=== PATIENT | female | born 2000 | race Asian ===

== ENCOUNTER 2019-01-17 21:47 | Emergency (ER) | payer OTHER ==
--- NOTE | 2019-01-17 22:15 | ED ---
Medical Screening - HPI Summary HPI Summary: Patient complains of increasing thoughts of SI over the past month. States history of same over the past year. Patient is new student at [employer]. Has planned to jump off the bridge. Prior attempted OD at 12 years old. History of meniscectomy as part of gender change process. Denies EtOH today or recreational drug use. Admits to cutting left arm with passive scissors. Has any symptoms of illness, pain or other injury. Denies medical history. - History of Current Complaint Chief Complaint: EDSuicidal Stated Complaint: PSYCH EVALUATION PER PT Time Seen by Provider: 01/17/19 22:09 Onset/Duration: Started Weeks Ago Severity: moderate PMH/Surg Hx/FS Hx/Imm Hx Endocrine/Hematology History: Denies: Hx Diabetes Cardiovascular History: Denies: Hx Hypercholesterolemia, Hx Hypertension History: Denies: Hx Dialysis Sensory History: Denies: Hx Eye Prosthesis Opthamlomology History: Denies: Hx Legally Blind EENT History: Denies: Hx Deafness Neurological History: Denies: Hx Dementia Infectious Disease History: No Infectious Disease History: Denies: Traveled Outside the US in Last 30 Days - Family History Known Family History: Negative: Hypertension, Diabetes - Social History Alcohol Use: None Substance Use Type: Reports: Marijuana Smoking Status (MU): Never Smoked Tobacco Review of Systems Constitutional: Negative Eyes: Negative ENT: Negative Cardiovascular: Negative Respiratory: Negative Gastrointestinal: Negative Genitourinary: Negative Musculoskeletal: Negative Skin: Other Neurological: Negative Positive: Depressed All Other Systems Reviewed And Are Negative: Yes Physical Exam - Summary Physical Exam Summary: Several small lacerations to left forearm that are healing well. No indication for suturing or treatment. Alert and oriented, cooperative with exam. Triage Information Reviewed: Yes Vital Signs On Initial Exam: Initial Vitals Temp Pulse Resp BP Pulse Ox 98.4 F 85 18 158/122 98 01/17/19 21:51 01/17/19 21:51 01/17/19 21:51 01/17/19 21:51 01/17/19 21:51 Vital Signs Reviewed: Yes Appearance: Positive: Well-Appearing Skin: Positive: Warm Eyes: Positive: Normal ENT: Positive: Normal ENT inspection Neck: Positive: Supple Respiratory/Lung Sounds: Positive: Clear to Auscultation Cardiovascular: Positive: Normal Abdomen Description: Positive: Nontender Musculoskeletal: Positive: Normal Neurological: Positive: Normal Psychiatric: Positive: Normal AVPU Assessment: Alert - [place] Coma Scale Best Eye Response: 4 - Spontaneous Best Motor Response: 6 - Obeys Commands Best Verbal Response: 5 - Oriented Coma Scale Total: 15 Diagnostics - Vital Signs Vital Signs Temp Pulse Resp BP Pulse Ox 01/17/19 21:51 98.4 F 85 18 158/122 98 - Laboratory Result Diagrams: 01/17/19 22:21 01/17/19 22:21 Lab Statement: Any lab studies that have been ordered have been reviewed, and results considered in the medical decision making process. Course/Dx - Course Course Of Treatment: Patient complains of increasing thoughts of SI over the past month. States history of same over the past year. Patient is new student at [employer]. Has planned to jump off the bridge. Prior attempted OD at 12 years old. History of meniscectomy as part of gender change process. Denies EtOH today or recreational drug use. Admits to cutting left arm with passive scissors. Has any symptoms of illness, pain or other injury. Denies medical history. Vital signs within normal limits. Labs unremarkable. Mental health recommends discharge for outpatient treatment. - Diagnoses Provider Diagnoses: Depression Discharge ED - Sign-Out/Discharge Documenting (check all that apply): Patient Departure Patient Received Moderate/Deep Sedation with Procedure: No - Discharge Plan Condition: Stable Disposition: HOME Referrals: No Primary Care PhysNOPCP [Primary Care Provider] - - Billing Disposition and Condition Condition: STABLE Disposition: Home
[2019-01-17 22:32] LABS: ABS Basophils 0.1 10^3/ul (0-0.2); ABS Eosinophils 0.2 10^3/ul (0-0.6); ABS Lymphocytes 2.5 10^3/ul (1.0-4.8); ABS Monocytes 0.7 10^3/ul (0-0.8); ABS Neutrophils 3.6 10^3/ul (1.5-7.7); Eosinophil % 2.7 %; Hematocrit 43 % (35-47); Hemoglobin 14.6 g/dL (12.0-16.0); Lymphocyte % 35.4 %; Mean Corpuscular HGB Conc 34 g/dL (31-36); Mean Corpuscular Hemoglobin 32 pg (27-31); Mean Corpuscular Volume 93 fL (80-97); Mean Platelet Volume 6.8 fL (7.4-10.4); Platelet Count 233 10^3/uL (150-450); Red Blood Count 4.63 10^6 /uL (3.70-4.87); Red Cell Distribution Width 13 % (10-15)
[2019-01-17 22:47] LABS: ALT 11 U/L (7-52); AST 16 U/L (13-39); Albumin 4.9 g/dL (3.2-5.2); Albumin/Globulin Ratio 1.8 (1-3); Alkaline Phosphatase 48 U/L (34-104); Anion Gap 6 mmol/L (2-11); BUN/Creatinine Ratio 14.3 (8-20); Blood Urea Nitrogen 9 mg/dL (6-24); CO2 Carbon Dioxide 29 mmol/L (22-32); Calcium 9.7 mg/dL (8.6-10.3); Chloride 104 mmol/L (101-111); EGFR African American 147.3 (>60); EGFR Non-African American 121.7 (>60); Globulin 2.8 g/dL (2-4); Glucose 99 mg/dL (70-100); Potassium 3.9 mmol/L (3.5-5.0); Sodium 139 mmol/L (135-145); Total Protein 7.7 g/dL (6.4-8.9)
[2019-01-17 23:15] LABS: Acetaminophen < 15 mcg/mL; Alcohol < 10 mg/dL (<10); Salicylate < 2.50 mg/dL (<30)
[2019-01-17 23:23] LABS: Urine Appearance Clear; Urine Bacteria Absent (Absent); Urine Bilirubin Negative (Negative); Urine Blood 2+ (Negative); Urine Color Colorless; Urine Glucose Negative (Negative); Urine Ketones Negative (Negative); Urine Nitrite Negative (Negative); Urine Protein Negative (Negative); Urine Red Blood Cell Absent (Absent); Urine Specific Gravity 1.002 (1.010-1.030); Urine Squamous Epithelial Cell Present (Absent); Urine Urobilinogen Negative (Negative); Urine White Blood Cell Absent (Absent)
[2019-01-17 23:30] LABS: TSH (Thyroid Stimulating Horm) 3.11 mcIU/mL (0.34-5.60)
[2019-01-17 23:37] LABS: Urine Benzodiazepine Screen None Detected (None Detect); Urine Opiates Screen None Detected (None Detect)
[2019-01-18 02:09] VITALS: BP 120/81
== END 2019-01-18 02:07 | disposition home or self-care (01) ==
LOC: ED 21:47
DX: F32.9 Major depressive disorder, single episode, unspecified (principal); F64.9 Gender identity disorder, unspecified; Z91.5 Personal history of self-harm
CPT/HCPCS: 36415; 80053; 80307; 80320; 80329; 81003; 81015; 84443; 85025; 99285; G0480

== ENCOUNTER 2019-01-23 21:42 | Inpatient (IN) | payer OTHER ==
[2019-01-23 22:31] LABS: Urine Appearance Clear; Urine Bilirubin Negative (Negative); Urine Blood Negative (Negative); Urine Color Colorless; Urine Glucose Negative (Negative); Urine Ketones Negative (Negative); Urine Nitrite Negative (Negative); Urine Protein Negative (Negative); Urine Specific Gravity 1.002 (1.010-1.030); Urine Urobilinogen Negative (Negative)
[2019-01-23 22:34] LABS: ABS Basophils 0.1 10^3/ul (0-0.2); ABS Eosinophils 0.2 10^3/ul (0-0.6); ABS Lymphocytes 2.5 10^3/ul (1.0-4.8); ABS Monocytes 0.7 10^3/ul (0-0.8); ABS Neutrophils 3.9 10^3/ul (1.5-7.7); Eosinophil % 2.4 %; Hematocrit 43 % (35-47); Hemoglobin 14.9 g/dL (12.0-16.0); Lymphocyte % 33.7 %; Mean Corpuscular HGB Conc 35 g/dL (31-36); Mean Corpuscular Hemoglobin 32 pg (27-31); Mean Corpuscular Volume 92 fL (80-97); Mean Platelet Volume 6.5 fL (7.4-10.4); Nucleated Red Blood Cells % 0.1; Platelet Count 253 10^3/uL (150-450); Red Blood Count 4.71 10^6 /uL (3.70-4.87); Red Cell Distribution Width 13 % (10-15); White Blood Count 7.4 10^3/uL (3.5-10.8)
[2019-01-23] MEDS ORDERED: Charcoal ACTIVATED* 25 GM/120 ML BTL PO ONE (22:50)
[2019-01-23 22:57] LABS: Urine Benzodiazepine Screen None Detected (None Detect); Urine Opiates Screen None Detected (None Detect)
[2019-01-23 22:57] LABS: ALT 10 U/L (7-52); AST 15 U/L (13-39); Albumin 4.8 g/dL (3.2-5.2); Albumin/Globulin Ratio 1.9 (1-3); Alkaline Phosphatase 50 U/L (34-104); Anion Gap 9 mmol/L (2-11); BUN/Creatinine Ratio 12.7 (8-20); Blood Urea Nitrogen 9 mg/dL (6-24); CO2 Carbon Dioxide 24 mmol/L (22-32); Calcium 9.6 mg/dL (8.6-10.3); Chloride 106 mmol/L (101-111); EGFR African American 128.3 (>60); Globulin 2.5 g/dL (2-4); Glucose 92 mg/dL (70-100); Potassium 3.5 mmol/L (3.5-5.0); Sodium 139 mmol/L (135-145); Total Protein 7.3 g/dL (6.4-8.9)
[2019-01-23 23:05] LABS: Acetaminophen < 15 mcg/mL; Alcohol 11 mg/dL (<10); Salicylate < 2.50 mg/dL (<30)
--- NOTE | 2019-01-24 02:43 | ED ---
Medical Screening - HPI Summary HPI Summary: Patient complains of following 470 mg of Prozac with intent to self-harm. Denies intent to kill herself. Patient states she had an old prescription for Prozac in 10 mg tabs. Patient states she took 20 tabs at 8 PM tonight. Took another 27 tabs at 9 PM tonight. Also states she took a shot of gin. Denies any other drug use. Patient states she was recently started on Lexapro which she has increased her depression. Other than depression, denies any other symptoms, pain or injury. History of gender transformation and depression. - History of Current Complaint Chief Complaint: EDSuicidal Stated Complaint: OVERDOSE PER PT Time Seen by Provider: 01/23/19 22:11 Onset/Duration: Started Hours Ago Severity: mild PMH/Surg Hx/FS Hx/Imm Hx Endocrine/Hematology History: Denies: Hx Diabetes Cardiovascular History: Denies: Hx Hypercholesterolemia, Hx Hypertension History: Denies: Hx Dialysis Sensory History: Denies: Hx Eye Prosthesis, Hx Legally Blind, Hx Deafness Opthamlomology History: Denies: Hx Eye Prosthesis, Hx Legally Blind Neurological History: Denies: Hx Dementia Psychiatric History: Reports: Hx Eating Disorder - Bulemia and Eating Dis NOS. Denies: Hx of Violent Episodes Against Others - Immunization History Immunizations Up to Date: Yes Infectious Disease History: No Infectious Disease History: Denies: Traveled Outside the US in Last 30 Days - Family History Known Family History: Negative: Hypertension, Diabetes - Social History Alcohol Use: Occasionally Substance Use Type: Reports: Marijuana Smoking Status (MU): Never Smoked Tobacco Review of Systems Constitutional: Negative Eyes: Negative ENT: Negative Cardiovascular: Negative Respiratory: Negative Gastrointestinal: Negative Genitourinary: Negative Musculoskeletal: Negative Skin: Negative Neurological: Negative Positive: Depressed All Other Systems Reviewed And Are Negative: Yes Physical Exam Triage Information Reviewed: Yes Vital Signs On Initial Exam: Initial Vitals Temp Pulse Resp BP Pulse Ox 99.5 F 100 15 144/87 99 01/23/19 21:53 01/23/19 21:53 01/23/19 21:53 01/23/19 21:53 01/23/19 21:53 Vital Signs Reviewed: Yes Appearance: Positive: Well-Appearing Skin: Positive: Warm Head/Face: Positive: Normal Head/Face Inspection Eyes: Positive: Normal ENT: Positive: Normal ENT inspection Neck: Positive: Supple Respiratory/Lung Sounds: Positive: Clear to Auscultation Cardiovascular: Positive: Normal Abdomen Description: Positive: Nontender Musculoskeletal: Positive: Normal Neurological: Positive: Normal Psychiatric: Positive: Normal AVPU Assessment: Alert - [place] Coma Scale Best Eye Response: 4 - Spontaneous Best Motor Response: 6 - Obeys Commands Best Verbal Response: 5 - Oriented Coma Scale Total: 15 Diagnostics - Vital Signs Vital Signs Temp Pulse Resp BP Pulse Ox 01/23/19 21:53 99.5 F 100 15 144/87 99 - Laboratory Lab Results: Lab Results 01/23/19 01/23/19 01/23/19 Range/Units 22:07 22:07 22:29 WBC 7.4 (3.5-10.8) 10^3/uL RBC 4.71 (3.70-4.87) 10^6 /uL Hgb 14.9 (12.0-16.0) g/dL Hct 43 (35-47) % MCV 92 (80-97) fL MCH 32 H (27-31) pg MCHC 35 (31-36) g/dL RDW 13 (10-15) % Plt Count 253 (150-450) 10^3/uL MPV 6.5 L (7.4-10.4) fL Neut % (Auto) 53.5 % Lymph % (Auto) 33.7 % [place] % (Auto) 9.5 % Eos % (Auto) 2.4 % Baso % (Auto) 0.9 % Absolute Neuts (auto) 3.9 (1.5-7.7) 10^3/ul Absolute Lymphs (auto) 2.5 (1.0-4.8) 10^3/ul Absolute Monos (auto) 0.7 (0-0.8) 10^3/ul Absolute Eos (auto) 0.2 (0-0.6) 10^3/ul Absolute Basos (auto) 0.1 (0-0.2) 10^3/ul Absolute Nucleated RBC 0.0 10^3/ul Nucleated RBC % 0.1 Sodium (135-145) mmol/L Potassium (3.5-5.0) mmol/L Chloride (101-111) mmol/L Carbon Dioxide (22-32) mmol/L Anion Gap (2-11) mmol/L BUN (6-24) mg/dL Creatinine (0.51-0.95) mg/dL Est GFR ( Amer) (>60) Est GFR (Non-Af Amer) (>60) BUN/Creatinine Ratio (8-20) Glucose (70-100) mg/dL Calcium (8.6-10.3) mg/dL Total Bilirubin (0.2-1.0) mg/dL AST (13-39) U/L ALT (7-52) U/L Alkaline Phosphatase (34-104) U/L Total Protein (6.4-8.9) g/dL Albumin (3.2-5.2) g/dL Globulin (2-4) g/dL Albumin/Globulin Ratio (1-3) TSH (0.34-5.60) mcIU/mL Urine Color Colorless Urine Appearance Clear Urine pH 7.0 (5-9) Ur Specific [place] 1.002 L (1.010-1.030) Urine Protein Negative (Negative) Urine Ketones Negative (Negative) Urine Blood Negative (Negative) Urine Nitrate Negative (Negative) Urine Bilirubin Negative (Negative) Urine Urobilinogen Negative (Negative) Ur Leukocyte Esterase Negative (Negative) Urine Glucose Negative (Negative) Salicylates (<30) mg/dL Urine Opiates Screen None detected (None Detect) Acetaminophen mcg/mL Ur Barbiturates Screen None detected (None Detect) Ur Phencyclidine Scrn None detected (None Detect) Ur Amphetamines Screen None detected (None Detect) U Benzodiazepines Scrn None detected (None Detect) Urine Cocaine Screen None detected (None Detect) U Cannabinoids Screen None detected (None Detect) Serum Alcohol (<10) mg/dL 01/23/19 Range/Units 22:29 WBC (3.5-10.8) 10^3/uL RBC (3.70-4.87) 10^6 /uL Hgb (12.0-16.0) g/dL Hct (35-47) % MCV (80-97) fL MCH (27-31) pg MCHC (31-36) g/dL RDW (10-15) % Plt Count (150-450) 10^3/uL MPV (7.4-10.4) fL Neut % (Auto) % Lymph % (Auto) % [place] % (Auto) % Eos % (Auto) % Baso % (Auto) % Absolute Neuts (auto) (1.5-7.7) 10^3/ul Absolute Lymphs (auto) (1.0-4.8) 10^3/ul Absolute Monos (auto) (0-0.8) 10^3/ul Absolute Eos (auto) (0-0.6) 10^3/ul Absolute Basos (auto) (0-0.2) 10^3/ul Absolute Nucleated RBC 10^3/ul Nucleated RBC % Sodium 139 (135-145) mmol/L Potassium 3.5 (3.5-5.0) mmol/L Chloride 106 (101-111) mmol/L Carbon Dioxide 24 (22-32) mmol/L Anion Gap 9 (2-11) mmol/L BUN 9 (6-24) mg/dL Creatinine 0.71 (0.51-0.95) mg/dL Est GFR ( Amer) 128.3 (>60) Est GFR (Non-Af Amer) 106.0 (>60) BUN/Creatinine Ratio 12.7 (8-20) Glucose 92 (70-100) mg/dL Calcium 9.6 (8.6-10.3) mg/dL Total Bilirubin 0.40 (0.2-1.0) mg/dL AST 15 (13-39) U/L ALT 10 (7-52) U/L Alkaline Phosphatase 50 (34-104) U/L Total Protein 7.3 (6.4-8.9) g/dL Albumin 4.8 (3.2-5.2) g/dL Globulin 2.5 (2-4) g/dL Albumin/Globulin Ratio 1.9 (1-3) TSH 2.10 (0.34-5.60) mcIU/mL Urine Color Urine Appearance Urine pH (5-9) Ur Specific [place] (1.010-1.030) Urine Protein (Negative) Urine Ketones (Negative) Urine Blood (Negative) Urine Nitrate (Negative) Urine Bilirubin (Negative) Urine Urobilinogen (Negative) Ur Leukocyte Esterase (Negative) Urine Glucose (Negative) Salicylates < 2.50 (<30) mg/dL Urine Opiates Screen (None Detect) Acetaminophen < 15 mcg/mL Ur Barbiturates Screen (None Detect) Ur Phencyclidine Scrn (None Detect) Ur Amphetamines Screen (None Detect) U Benzodiazepines Scrn (None Detect) Urine Cocaine Screen (None Detect) U Cannabinoids Screen (None Detect) Serum Alcohol 11 H (<10) mg/dL Result Diagrams: 01/23/19 22:29 01/23/19 22:29 Lab Statement: Any lab studies that have been ordered have been reviewed, and results considered in the medical decision making process. Course/Dx - Course Course Of Treatment: Patient complains of following 470 mg of Prozac with intent to self-harm. Denies intent to kill herself. Patient states she had an old prescription for Prozac in 10 mg tabs. Patient states she took 20 tabs at 8 PM tonight. Took another 27 tabs at 9 PM tonight. Also states she took a shot of gin. Denies any other drug use. Patient states she was recently started on Lexapro which she has increased her depression. Other than depression, denies any other symptoms, pain or injury. History of gender transformation and depression. Vital signs within normal limits. Labs unremarkable. Poison control contacted, recommended activated charcoal and 6 hours of observation. Charcoal administered. Patient observed. Patient remains asymptomatic. Mental health evaluation pending. - Diagnoses Provider Diagnoses: Mood disorder Discharge ED - Sign-Out/Discharge Documenting (check all that apply): Sign-Out Patient Signing out patient TO: Toi Tripp - Discharge Plan Condition: Stable Disposition: ADMITTED TO [facility] - Billing Disposition and Condition Condition: STABLE Disposition: Admitted to [facility]
--- NOTE | 2019-01-24 05:57 | ED ---
Progress - Progress Note Progress Note: Patient is received as a sign out from AUSTEN Branch 01/24/19 pending disposition of this mental health patient. 0436 Patients case was reviewed by Dr. Wu, patient was offered voluntary admission with diagnosis of mood disorder. However, there are no beds available for this patient. Patient is signed out to Dr. Riggs at 0700 shift change pending possible transfer of this patient. - Consult/PCP Time Called: 02:46 Course/Dx - Course Course Of Treatment: Patient is received as a sign out from AUST[facility] pending disposition of this mental health patient. 0436 Patients case was reviewed by Dr. Wu, patient was offered voluntary admission with diagnosis of mood disorder. However, there are no beds available for this patient. Patient is signed out to Dr. Riggs at 0700 01/24/19 shift change pending possible transfer of this patient. - Diagnoses Provider Diagnoses: Mood disorder - Provider Notifications Discussed Care Of Patient With: Jalen Wu Time Discussed With Above Provider: 04:36 Instructed by Provider To: Other - 0436 Patients case was reviewed by Dr. Wu, patient was offered voluntary admission with diagnosis of mood disorder. However, there are no beds available for this patient. Discharge ED - Sign-Out/Discharge Documenting (check all that apply): Sign-Out Patient, Receiving Sign-Out Signing out patient TO: Del Riggs Receiving patient FROM: [facility] - Discharge Plan Condition: Improved Disposition: ADMITTED TO [facility] - Billing Disposition and Condition Condition: IMPROVED Disposition: Admitted to [facility] - Attestation Statements Document Initiated by Donovan: Yes Documenting Scribe: BISHOP SHORT Provider For Whom Donovan is Documenting (Include Credential): MAHESH SOTO MD Scribshasha Attestation: BISHOP Santizo, scribed for MAHESH SOTO MD on 01/28/19 at 0617. Scribe Documentation Reviewed: Yes Provider Attestation: The documentation as recorded by the BISHOP hagan accurately reflects the service I personally performed and the decisions made by me, MAHESH SOTO MD Status of Scribe Document: Viewed
--- NOTE | 2019-01-24 07:22 | ED ---
Progress - Progress Note Progress Note: Patient is received as a sign out from Dr. Tripp at 0700 on 01/24/19 pending disposition. Course/Dx - Course Course Of Treatment: Patient is received as a sign out from Dr. Tripp at 0700 on 01/24/19 pending disposition. Pt admitted to [facility]. - Diagnoses Provider Diagnoses: Mood disorder - Provider Notifications Time Discussed With Above Provider: 04:36 Instructed by Provider To: Other - 0436 Patients case was reviewed by Dr. Wu, patient was offered voluntary admission with diagnosis of mood disorder. However, there are no beds available for this patient. Discharge ED - Sign-Out/Discharge Documenting (check all that apply): Patient Departure, Receiving Sign-Out Receiving patient FROM: Toi Tripp - Discharge Plan Condition: Stable Disposition: ADMITTED TO [facility] - Billing Disposition and Condition Condition: STABLE Disposition: Admitted to [facility] - Attestation Statements Document Initiated by Eladiae: Yes Documenting Scribe: Cleo Alvarado Provider For Whom Donovan is Documenting (Include Credential): Del Riggs MD. Scribe Attestation: Cleo Santizo, scribed for Del Riggs MD. on 01/24/19 at 1807. Scribe Documentation Reviewed: Yes Provider Attestation: The documentation as recorded by the Cleo hagan accurately reflects the service I personally performed and the decisions made by Del donovan MD. Status of Scribe Document: Viewed
[2019-01-24] MEDS ORDERED: Acetaminophen TAB* 325 MG PO PRN (09:03)
[2019-01-24] MEDS ORDERED: Al Hydrox/Mg Hydrox/Simet LIQ* 30 ML UDC PO PRN (09:03)
[2019-01-25 07:39] LABS: HDL Cholesterol 45.3 mg/dL
--- NOTE | 2019-01-25 09:31 | HP ---
HISTORY AND PHYSICAL: DATE OF ADMISSION: 01/24/09 PROVIDER: Bernadette Pendleton NP, in Psychiatry. SUPERVISING PHYSICIAN: Griffin Colmenares MD * ( DICTATED BY BERNADETTE PENDLETON NP) JUSTIFICATION FOR ADMISSION: The patient is in need of 24-hour supervision and care secondary to suicidal ideation and overdose. CHIEF COMPLAINT: "I feel so shittily numb." HISTORY OF PRESENT ILLNESS: The patient is a 18-year-old transitioning female to male, single, [place], [employer] student with a history of depression and bulimia, who arrives by car and is here on a voluntary status after overdosing on 47 10 mg Prozac pills. Eloisa states he has been feeling "out of it." Lexapro made it worse. He has been having intrusive thoughts of suicidal ideation. Yet, the overdose of Prozac was not to end his life. It was in fact to feel different and possibly get some crazy dreams. Eloisa reports symptoms brain fog, concentration difficulties, problems maintaining conversations due to attention. Nevertheless , he is doing well in classes. He is studying entomology. He states "I can't just "leave" because that would blank up so many people right now." Here, leaving means suicide. He endorses feeling numb and just generally bad. His interests are reduced. He feels some guilt about his desire to end his life because other people would feel so bad. His energy is lower. He cannot concentrate well on social issues. He did purge once 3 weeks ago and in the past the most recent was 6 months before that. Suicidal ideation is on his mind. PAST PSYCHIATRIC HISTORY: He has no previous admissions and no history of attempts. He has had plans at ages 12, 16, and 17. He gave up on his life "I let things happen until they crashed and burned" at those times. The first time he felt suicidal ideation was at 9 years old; he felt like a burden to his parents. He also, when emotionally overwhelmed, purges. Last purge was three weeks ago. The last time before that was six months ago. He does not binge beforehand. He has tried Prozac and Lexapro in the past. PAST MEDICAL HISTORY: He is transitioning and began transitioning at age 17 from female to male; this helped him feel better for a while. He had surgery this summer, mastectomy; it is not healing well. The anaesthesia that was administered led to depression. He is not healing well enough that he needs wet -dry dressing and gauze, and paper taper. FAMILY HISTORY: On mom's side, there is depression and OCD. On dad's side, there is eating disorder. SUBSTANCE ABUSE: Eloisa drinks socially 1 to 2 shots per week, uses marijuana once per month and prefers edibles to smoking. SOCIAL HISTORY: He is from [place]. Denies any abuse. He is at [employer] in his second year, has gotten a lot of his core courses out of the way, so he can focus on entomology. He says although he is taking 18 credits and has a job, this is not difficult for him due to the fact that he likes most of his classes and only one of them is hard. He has never been in the . He has no legal issues. REVIEW OF SYSTEMS: The patient reports feeling fatigued. He denies shortness of breath, heat or cold intolerance, chest pain or abdominal pain. He denies neurological symptoms. He denies fevers or changes in weight. PHYSICAL EXAMINATION VITAL SIGNS: On 01/24/19 at 1310, temperature was 98.2, pulse 92, respirations 16, O2 sat on room air 98, blood pressure ranged from 127/89 to 157/120 with a note indicating that Eloisa endorsed high anxiety at that time. There was no physical exam performed in the emergency department and there was no physical exam performed on the behavioral services unit due to lack of subjective need and being declined by the patient. LABORATORY DATA: Most data are within normal limits. Exceptions include MCH high at 32, MPV low at 6.5. TSH is normal at 2.10. Urine specific gravity is low at 1.002. Toxicology is free from drugs of abuse with the exception of serum alcohol being 11. MENTAL STATUS EXAMINATION: Eloisa is 5-foot 3-inch, 140-pounds and is transitioning from female to male. His grooming is good. His behavior is typical, somewhat unhappy, poor eye contact, some tears. He is calm and cooperative. His speech is normal rate, tone, and volume. He is dysthymic. Constricted affect. Thought processes appear to be normal. Thought content is free of delusions. He is not homicidal at this time. He states he is not suicidal. No hallucinations. Insight is good. Judgment is fair. Alert and oriented x4. DIAGNOSIS: Major depressive disorder. IMPRESSION: Eloisa is a 18-year-old transitioning female to male, who came to the hospital from [employer] and is here on a voluntary status after overdosing on 47 10-mg Prozac pills. PLAN: The patient is admitted to the adult behavioral health unit and placed on q.15-minute checks for his own safety. He is encouraged to participate in supportive milieu, individual, and group therapies. Estimated length of stay is 3 to 5 days. We might to obtain an MMPI for diagnostic clarification, although it does appear clear enough that he is depressed. We will titrate medications including starting Effexor XR 75 mg to efficacy and monitor for mood and thought content. Discharge planning will include family involvement if desired and outpatient providers. BERNADETTE PENDLETON NP [id number]/CPS #: [id number] ALISHA
[2019-01-25] MEDS: Venlafaxine EXT RELEASE CAP* 75 MG PO SCH ×2 (09:39→10:17)
--- NOTE | 2019-01-25 21:23 | PN ---
Subjective - Subjective Date of Service: 01/25/19 Service Type: 75073 Hosp care 15 min low complexity Subjective: Lexi is eager for discharge and has submitted a 72 hour notice. He has been working on a safety plan and was encouraged that the plan could be embellished with further details and activities. We discussed things that can be helpful when feeling flat or alone or numb. We discussed supports that are available. We also talked about medication and how it might be helpful, as well. He is tolerating the Effexor XR 75 mg well. Objective - General Observations Appearance: Neat, Well Groomed Appears Stated Age: Yes Stature: WNL Posture: WNL Eye Contact: Average Behavior/Activity: WNL - Interaction Observations Attitude Towards Examiner: Cooperative, Anxious Stated Mood: Dysphoric, Anxious Affect: Restricted Speech Pattern/Tone: Clear Thought Process: Coherent Perception: WNL Thought Content: Preoccupation/Ruminations Hallucination Type: None Delusion Type: None - Cognitive Function Orientation: A&O x 4 Level of Consciousness: Awake, Alert, Appropriate Cognition: WNL Estimated Intelligence: Above Normal Insight: WNL Judgment Within Normal Limits: Yes - Medication Compliance Cooperative with Inpatient Medication Regimen: Yes - Group Participation Participates in Group Activities: Yes Assessment - Assessment Merits Inpatient Hospitalization: For Immediate Safety Inpatient DSM-V Dx: F33.1 Clinical Impression: Lexi is a 18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 He is insightful and realizes that this is not the ideal fashion in which to relieve the numbness and is progressing toward more effective coping strategies. Plan - Plan Treatment Plan: Name: LEXI BARAHONA Birthdate: 2000 [id number] Effexor XR 75 mg is started. Discharge is planned for . Continued Medication Management: Different Medication Medications: Current Medications Acetaminophen (Tylenol Tab*) 650 mg PO Q4H PRN PRN Reason: for pain; or Temp >101 F Al Hydrox/Mg Hydrox/Simethicone (Maalox Plus*) 30 ml PO Q4H PRN PRN Reason: INDIGESTION Venlafaxine HCl (Effexor Xr Cap*) 75 mg PO DAILY JOSÉ LUIS Last Admin: 01/25/19 10:17 Dose: 75 mg - Discharge Plan Discharge Plan: Outpatient Follow Up Outpatient Program: Counseling/Psych Services at [employer]
[2019-01-26] MEDS: Venlafaxine EXT RELEASE CAP* 75 MG PO SCH (10:05)
[2019-01-26 10:28] VITALS: BP 134/102
--- NOTE | 2019-01-26 22:06 | DS ---
DISCHARGE SUMMARY: DATE OF ADMISSION: 01/24/19 DATE OF DISCHARGE: 01/26/19 PROVIDER: Bernadette Pendleton NP, Psychiatry. SUPERVISING PHYSICIAN: Dr. Griffin Colmenares.* (DICTATED BY BERNADETTE PENDLETON NP) DIAGNOSIS: Major depressive disorder, recurrent. CONDITION AT THE TIME OF DISCHARGE: Improved. Psychiatrically cleared. Stable. Participated in groups, social with peers. Eloisa is agreeable to discharge. He has done well here psychiatrically, tolerating the addition of Effexor well, and he will be attending [facility] for therapy and followup. MENTAL STATUS EXAM: At the time of discharge, Eloisa is calm, cooperative, and makes good eye contact. He is alert and oriented x4. His grooming is excellent , speech pace is normal, thought processes are logical. He is not psychotic or delusional. Denies AH, VH, SI, and HI. Insight and judgment are good. He is willing to follow up and urged to see a therapist. DISCHARGE INSTRUCTIONS TO THE PATIENT: A. Medications: Effexor XR 75 mg. B. Diet is regular. C. Activities as tolerated. Eloisa is a nonsmoker. There are no studies pending at the time of discharge. D. Followup care: He has appointments at [facility] because there is a transgender group that he may be interested in attending on every other Wednesday from 5 to with the next support meeting scheduled for 01/28/19. He also has an appointment on 01/27/19 at 8:30 in the morning with "Roddy Avery" and Dr. Quin Hough on , 02/02/19 at 1 p.m. He is also invited to join the group, [facility], on Tuesdays from 3 to 4, each semester with Samina Foreman, Ph.D and Wendy BEARDW-R. Eloisa also has an appointment with the primary care provider at [facility], Dr. Ada Juarez, at 12:20 on 01/27/19. She is located on level 5 and there is paperwork being sent to your health portal. Please fill this out prior to your appointment. E. Disposition: Eloisa is being sent home to his dorm room. F. Substance abuse followup is not indicated. HOSPITAL COURSE: Part A: Chief complaint: I feel so shittily numb. 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 Eloisa states he has been feeling "out of it." Lexapro made it worse. He has been having intrusive thoughts of suicidal ideation, yet the overdose of Prozac was not to end his life. It was in fact to feel differently and possibly get some crazy dreams. Eloisa reports symptoms of brain fog, concentration difficulties, problems maintaining conversations due to attention. Nevertheless , he is doing well in classes. He is studying entomology. He states, "I can't just "leave" because that would mess up so many people right now." He here leaving means suicide. He endorses feeling numb and just generally bad. His interests are reduced. He feels some guilt about his desire to end his life because other people would feel so bad. His energy is lower. He cannot concentrate well on social issues. He did purge once 3 weeks ago and in the past the most recent was 6 months before that. Suicidal ideation is on his mind. Part B: Psychiatric treatment was rendered. Eloisa was admitted to the adult behavioral unit and placed on 15-minute checks for safety. Eloisa did well on the unit; although he did not enjoy being here, he did go to groups. He interacted with peers well. He tolerated the addition of venlafaxine XR 75 mg. We chose an SNRI as SSRIs seemed to make him feel foggy and strange. I discontinued all SSRIs for that reason. Eloisa was not interested in having us meet with his family or contact them. He does have a surgical wound on his chest that is not healing well, so we sent him to [facility] to look at that post surgical wound. No consults were entered. Eloisa struggled on the unit because the other patients were more acutely ill. Eloisa was only here for approximately 2 days and Eloisa would have preferred to have left a day earlier. He is future oriented at this time and is eager to return to school. He is no longer suicidal. BERNADETTE PENDLETON, ASSISTED LIVING ASSOCIATE [id number]/[facility] #: [id number] ALIS[place]
== END 2019-01-26 11:00 | disposition home or self-care (01) | DRG 885 ==
LOC: ED 21:42 → BSU 01-24 09:03
PROVIDERS: ADMIT Psychiatry & Neurology Psychiatry; ATTEND Psychiatry & Neurology Psychiatry
DX: F33.1 Major depressive disorder, recurrent, moderate (principal); F50.2 Bulimia nervosa; R40.2362 Coma scale, best motor response, obeys commands, at arrival to emergency department; R40.2142 Coma scale, eyes open, spontaneous, at arrival to emergency department; R40.2252 Coma scale, best verbal response, oriented, at arrival to emergency department; T43.222A Poisoning by selective serotonin reuptake inhibitors, intentional self-harm, initial encounter; Y92.009 Unspecified place in unspecified non-institutional (private) residence as the place of occurrence of the external cause; Z72.89 Other problems related to lifestyle; Z87.890 Personal history of sex reassignment; Z90.13 Acquired absence of bilateral breasts and nipples; Z81.8 Family history of other mental and behavioral disorders
CPT/HCPCS: 36415; 80053; 80061; 80307; 80320; 80329; 81003; 83036; 84443; 85025; 93005; 99222; 99238; 99284; A9270-GY; G0480

== ENCOUNTER 2020-09-02 11:48 | Inpatient (IN) ==
[2020-09-02 12:20] LABS: ABS Eosinophils 0.2 10^3/ul (0-0.6); ABS Lymphocytes 1.9 10^3/ul (1.0-4.8); ABS Monocytes 0.5 10^3/ul (0-0.8); ABS Neutrophils 3.8 10^3/ul (1.5-7.7); Eosinophil % 3.6 %; Hematocrit 44 % (35-47); Hemoglobin 15.1 g/dL (12.0-16.0); Mean Corpuscular HGB Conc 34 g/dL (31-36); Mean Corpuscular Hemoglobin 32 pg (27-31); Mean Corpuscular Volume 94 fL (80-97); Mean Platelet Volume 7.3 fL (7.4-10.4); Nucleated Red Blood Cells % 0.1; Platelet Count 228 10^3/uL (150-450); Red Blood Count 4.68 10^6 /uL (3.70-4.87); Red Cell Distribution Width 13 % (10-15); White Blood Count 6.5 10^3/uL (3.5-10.8)
[2020-09-02 12:40] LABS: ALT 18 U/L (7-52); Albumin 4.5 g/dL (3.2-5.2); Albumin/Globulin Ratio 1.7 (1-3); Alkaline Phosphatase 60 U/L (34-104); Blood Urea Nitrogen 11 mg/dL (6-24); CO2 Carbon Dioxide 26 mmol/L (22-32); Calcium 9.8 mg/dL (8.6-10.3); Chloride 105 mmol/L (101-111); EGFR African American 102.2 (>60); EGFR Non-African American 84.4 (>60); Globulin 2.7 g/dL (2-4); Glucose 103 mg/dL (70-100); Sodium 138 mmol/L (135-145); Total Protein 7.2 g/dL (6.4-8.9)
[2020-09-02 12:42] LABS: Urine Benzodiazepine Screen None Detected (None Detect); Urine Cannabinoids Screen None Detected (None Detect); Urine Opiates Screen None Detected (None Detect)
[2020-09-02 13:17] LABS: Alcohol, S < 10 mg/dL (<10); Salicylate < 2.50 mg/dL (<30)
[2020-09-02 13:27] LABS: Acetaminophen < 15 mcg/mL
[2020-09-02 13:32] LABS: Anion Gap 7 mmol/L (2-11)
[2020-09-02 13:38] LABS: Urine Bacteria Absent (Absent); Urine Red Blood Cell Absent (Absent); Urine Squamous Epithelial Cell Present (Absent); Urine White Blood Cell Trace(0-5/hpf) (Absent)
[2020-09-02 13:39] LABS: Urine Appearance Clear; Urine Color Straw
[2020-09-02 13:40] LABS: Urine Bilirubin Negative (Negative); Urine Blood Negative (Negative); Urine Glucose Negative (Negative); Urine Ketones Negative (Negative); Urine Nitrite Negative (Negative); Urine Protein Negative (Negative); Urine Urobilinogen Negative (Negative)
[2020-09-02] MEDS ORDERED: Al Hydrox/Mg Hydrox/Simet LIQ 30 ML UDC PO PRN (19:35)
[2020-09-03 08:21] LABS: HDL Cholesterol 49.1 mg/dL
[2020-09-03] MEDS: Vitamin THERAPEUTIC TAB PO SCH (12:07)
[2020-09-04] MEDS: Vitamin THERAPEUTIC TAB PO SCH (08:25)
[2020-09-04 09:44] VITALS: BP 125/85
== END 2020-09-04 16:00 | disposition home or self-care (01) | DRG 885 ==
LOC: ED 11:48 → BSU 16:25
PROVIDERS: ADMIT Psychiatry & Neurology Psychiatry; ATTEND Psychiatry & Neurology Psychiatry